=== PATIENT | female | born 1975 | race Caucasian/White ===

== ENCOUNTER 2018-08-03 19:56 | Emergency (ER) | payer OTHER ==
[2018-08-03] MEDS ORDERED: BABY ASPIRIN 81 MG CHEW PO ONE (20:16)
--- NOTE | 2018-08-03 20:16 | ERPHSYRPT ---
- History of Present Illness Time Seen by Provider: 08/03/18 20:10 Historian: patient, family, EMS Exam Limitations: no limitations Physician History: 43 y/o white female s/p left arthroscopic partial meniscus repair this am. 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 no soa. pt also blacked out both times. never had this before. pt has a family h/o of pulm emboli with brother dying approx 2 years ago from pulm embolus. 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 pt refused asa because of postop Timing/Duration: today Quality: sharpness, stabbing Chest Pain Radiation: arm (right), back Severity of Pain-Max: moderate Severity of Pain-Current: mild Modifying Factors: Improves With: nothing Associated Symptoms: other (blacked out) Prior Chest Pain/Cardiac Workup: no prior chest pain, no prior cardiac workup Nitro Today/Relief: no nitro taken today Aspirin Treatment Today: no aspirin today (pt refuses) Allergies/Adverse Reactions: latex Allergy (Verified 08/03/18 20:03) Home Medications: Fexofenadine HCl [Katie] 30 mg PO BID PRN 01/30/14 [History] Aspirin EC 81 mg [Ecotrin 81 mg] 1 tab PO DAILY PRN PRN 08/03/18 [History] Cephalexin Mh 500 mg [Keflex 500 mg] 1 tab PO QID 08/03/18 [History] Naproxen 250 mg PO BID PRN 08/03/18 [History] Hx Tetanus, Diphtheria Vaccination/Date Given: Yes Hx Influenza Vaccination/Date Given: No Hx Pneumococcal Vaccination/Date Given: No - Review of Systems Constitutional: No Symptoms Eyes: No Symptoms Ears, Nose, & Throat: No Symptoms Respiratory: No Symptoms Cardiac: Chest Pain, Other (blacked out) Abdominal/Gastrointestinal: No Symptoms Genitourinary Symptoms: No Symptoms Musculoskeletal: No Symptoms Skin: No Symptoms Neurological: No Symptoms Psychological: Anxiety Endocrine: No Symptoms Hematologic/Lymphatic: No Symptoms Immunological/Allergic: No Symptoms All Other Systems: Reviewed and Negative - Past Medical History Pertinent Past Medical History: Yes Neurological History: No Pertinent History ENT History: No Pertinent History Cardiac History: No Pertinent History Respiratory History: No Pertinent History Endocrine Medical History: No Pertinent History Musculoskeletal History: No Pertinent History GI Medical History: No Pertinent History History: Other Psycho-Social History: No Pertinent History Female Reproductive Disorders: No Pertinent History Other Medical History: CYST ON IDNEYS ET KIDNEY STONES - Past Surgical History Past Surgical History: Yes Neuro Surgical History: No Pertinent History Cardiac: No Pertinent History Respiratory: No Pertinent History Gastrointestinal: No Pertinent History, Other Genitourinary: No Pertinent History Musculoskeletal: No Pertinent History Female Surgical History: Tubal Ligation, Other (endometrial ablation 2 months ago) Other Surgical History: TONSILS;SINUS - Social History Smoking Status: Never smoker Exposure to second hand smoke: No Drug Use: none Patient Lives Alone: No - Nursing Vital Signs Nursing Vital Signs: Initial Vital Signs Temperature 98.1 F 08/03/18 20:08 Pulse Rate 82 08/03/18 20:08 Respiratory Rate 18 08/03/18 20:08 Blood Pressure 132/78 08/03/18 20:08 O2 Sat by Pulse Oximetry 98 08/03/18 20:08 Pain Scale Pain Intensity 3 - Physical Exam General Appearance: mild distress, alert, anxiety Eye Exam: PERRL/EOMI, eyes nml inspection Ears, Nose, Throat Exam: normal ENT inspection, moist mucous membranes Neck Exam: normal inspection, non-tender, supple, full range of motion Respiratory Exam: normal breath sounds, chest tenderness, lungs clear, airway intact, No respiratory distress Cardiovascular Exam: regular rate/rhythm, normal heart sounds, normal peripheral pulses Gastrointestinal/Abdomen Exam: soft, normal bowel sounds, No tenderness, No guarding, No rebound Pelvic Exam: not done Rectal Exam: not done Back Exam: normal inspection, normal range of motion, CVA tenderness Extremity Exam: limited range of motion (secondary to surgery), other (left lower ext surgical bandages in place. 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 Care 08/03/18 20:17 Active EKG-ER Only STAT Care 08/03/18 20:16 Active EKG-ER Only STAT Care 08/04/18 00:45 Active IV Insertion STAT Care 08/03/18 20:16 Active Pulse Oximetry (ED) STAT Care 08/03/18 20:16 Active CHEST 1 VIEW (PORTABLE) Stat Exams 08/03/18 20:16 Taken CHEST WITH CONTRAST [CT] Stat Exams 08/03/18 20:49 Taken CBC W DIFF Stat Lab 08/03/18 20:45 Completed CMP Stat Lab 08/03/18 20:45 Completed D-DIMER QUANTITATION Stat Lab 08/03/18 20:45 Completed NT PRO BNP Stat Lab 08/03/18 20:45 Completed TROPONIN Q3H Lab 08/03/18 20:45 Completed TROPONIN Q3H Lab 08/03/18 23:40 Completed TROPONIN Q3H Lab 08/04/18 02:36 Completed TROPONIN Q3H Lab 08/04/18 05:30 Ordered TROPONIN Q3H Lab 08/04/18 08:30 Ordered Medication Summary Generic Name Dose Route Start Last Admin Trade Name Freq PRN Reason Stop Dose Admin Sodium Chloride 1,000 mls @ 100 mls/hr 08/03/18 20:45 08/03/18 20:41 Sodium Chloride 0.9% 1000 Ml IV 09/02/18 20:44 100 mls/hr .Q10H BERTHA Administration Discontinued Medications Generic Name Dose Route Start Last Admin Trade Name Freq PRN Reason Stop Dose Admin Aspirin 324 mg 08/03/18 20:16 08/03/18 20:42 Baby Aspirin 81 Mg Chew PO 08/03/18 20:17 Not Given STAT ONE Sodium Chloride Confirm 08/03/18 20:36 Sodium Chloride 0.9% 1000 Ml Administered 08/03/18 20:37 Dose 1,000 mls @ ud .ROUTE .STK-MED ONE Lab/Rad Data: Laboratory Result Diagrams 08/03/18 20:45 08/03/18 20:45 Laboratory Results 08/04/18 08/03/18 08/03/18 Range/Units 02:36 23:40 20:45 WBC (4.0-10.5) K/mm3 RBC (4.1-5.4) M/mm3 Hgb (12.0-16.0) gm/dl Hct (35-47) % MCV (78-100) fl MCH (26-32) pg MCHC (32-36) g/dl RDW (11.5-14.0) % Plt Count (150-450) K/mm3 MPV (6-9.5) fl Gran % (36.0-66.0) % Eos # (Auto) (0-0.5) Absolute Lymphs (auto) (1.0-4.6) Absolute Monos (auto) (0.0-1.3) Lymphocytes % (24.0-44.0) % Monocytes % (0.0-12.0) % Eosinophils % (0.00-5.0) % Basophils % (0.0-0.4) % Absolute Granulocytes (1.4-6.9) Basophils # (0-0.4) D-Dimer (215-500) ng/mL Sodium (137-145) mmol/L Potassium (3.5-5.1) mmol/L Chloride (98-107) mmol/L Carbon Dioxide (22-30) mmol/L Anion Gap (5-15) MEQ/L BUN (7-17) mg/dL Creatinine (0.52-1.04) mg/dL Estimated GFR ML/MIN Glucose (74-106) mg/dL Calcium (8.4-10.2) mg/dL Total Bilirubin (0.2-1.3) mg/dL AST (14-36) U/L ALT (0-35) U/L Alkaline Phosphatase (38-126) U/L Troponin I 0.030 0.027 0.022 (0.000-0.034) ng/mL NT-Pro-B Natriuret Pep (0-450) pg/mL Serum Total Protein (6.3-8.2) g/dL Albumin (3.5-5.0) g/dL 08/03/18 08/03/18 08/03/18 Range/Units 20:45 20:45 20:45 WBC 7.7 (4.0-10.5) K/mm3 RBC 4.03 L (4.1-5.4) M/mm3 Hgb 12.7 (12.0-16.0) gm/dl Hct 38.0 (35-47) % MCV 94.3 (78-100) fl MCH 31.5 (26-32) pg MCHC 33.4 (32-36) g/dl RDW 13.5 (11.5-14.0) % Plt Count 199 (150-450) K/mm3 MPV 9.8 H (6-9.5) fl Gran % 85.0 H (36.0-66.0) % Eos # (Auto) 0.01 (0-0.5) Absolute Lymphs (auto) 0.75 L (1.0-4.6) Absolute Monos (auto) 0.40 (0.0-1.3) Lymphocytes % 9.7 L (24.0-44.0) % Monocytes % 5.2 (0.0-12.0) % Eosinophils % 0.1 (0.00-5.0) % Basophils % 0.0 (0.0-0.4) % Absolute Granulocytes 6.54 (1.4-6.9) Basophils # 0 (0-0.4) D-Dimer 280 (215-500) ng/mL Sodium 140 (137-145) mmol/L Potassium 4.4 (3.5-5.1) mmol/L Chloride 108 H (98-107) mmol/L Carbon Dioxide 25 (22-30) mmol/L Anion Gap 10.7 (5-15) MEQ/L BUN 8 (7-17) mg/dL Creatinine 0.60 (0.52-1.04) mg/dL Estimated GFR > 60.0 ML/MIN Glucose 160 H (74-106) mg/dL Calcium 9.3 (8.4-10.2) mg/dL Total Bilirubin 0.70 (0.2-1.3) mg/dL AST 31 (14-36) U/L ALT 16 (0-35) U/L Alkaline Phosphatase 40 (38-126) U/L Troponin I (0.000-0.034) ng/mL NT-Pro-B Natriuret Pep 760 H (0-450) pg/mL Serum Total Protein 6.8 (6.3-8.2) g/dL Albumin 4.0 (3.5-5.0) g/dL - Progress Progress: improved, re-examined Air Movement: good Progress Note: 08/03/18 22:24 cta chest-no pulm emboli 08/04/18 00:04 denies cp. no soa. 08/04/18 00:35 no sig cp or soa. 3 hour troponin nl but sl increased. will repeat ekg and troponin at 0230 08/04/18 00:57 2nd [id number] on 08/04/18 hr 61 nl axis nsr no acute st segment changes. normal ekg. no change. 08/04/18 04:06 pt still with cp mild. repeat troponin 0.03. still nl but rising. called [facility] for transfer admission. i reviewed pt hx, condition, lab, ekg and ct scan results. he accepts pt for transfer. 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 pt had 2 brief episodes of same chest pain while here then nearly completely resolves. Blood Culture(s) Obtained: No Antibiotics given: No Counseled pt/family regarding: lab results, diagnosis, need for follow-up, rad results - Departure Departure Disposition: Transfer Clinical Impression: Chest pain, PVC (premature ventricular contraction) Condition: Stable Critical Care Time: No Referrals: JACOBO MARTIN [Primary Care Provider] - Additional Instructions: follow up with primary doctor for further management. follow your orthopedic surgeons instructions. return to ED for recurrent symptoms
[2018-08-03] MEDS ORDERED: Sodium Chloride 0.9% 1000 ML 1,000 ML ONE (20:36)
[2018-08-03] MEDS ORDERED: Sodium Chloride 0.9% 1000 ML 1,000 ML IV SCH (20:45)
[2018-08-03 20:46] LABS: Basophil (Absolute #) 0 (0-0.4); Eosinophil % 0.1 % (0.00-5.0); Eosinophil (Absolute #) 0.01 (0-0.5); Granulocyte Absolute (ANC) 6.54 (1.4-6.9); Hemoglobin 12.7 gm/dl (12.0-16.0); Lymphocyte (Absolute #) 0.75 (1.0-4.6); Lymphocytes % 9.7 % (24.0-44.0); Mean Cell Volume 94.3 fl (78-100); Mean Corpuscular Hemoglobin 31.5 pg (26-32); Mean Corpuscular Hgb Concent. 33.4 g/dl (32-36); Mean Platelet Volume 9.8 fl (6-9.5); Monocytes % 5.2 % (0.0-12.0); Platelet Count 199 K/mm3 (150-450); Red Blood Count 4.03 M/mm3 (4.1-5.4); Red Cell Distribution Width 13.5 % (11.5-14.0); White Blood Count 7.7 K/mm3 (4.0-10.5)
[2018-08-03 21:13] LABS: ALKALINE PHOSPHATASE 40 U/L (38-126); ANION GAP 10.7 MEQ/L (5-15); BLOOD UREA NITROGEN 8 mg/dL (7-17); CHLORIDE 108 mmol/L (98-107); Calcium 9.3 mg/dL (8.4-10.2); Carbon Dioxide 25 mmol/L (22-30); Glucose 160 mg/dL (74-106); NT PRO BNP 760 pg/mL (0-450); Potassium 4.4 mmol/L (3.5-5.1); SGOT/AST 31 U/L (14-36); SGPT/ALT 16 U/L (0-35); SODIUM 140 mmol/L (137-145); Total Protein 6.8 g/dL (6.3-8.2)
[2018-08-04 04:22] VITALS: BP 105/64; PULSE 60; O2SAT 98
--- NOTE | 2018-08-04 08:53 | XRAY ---
Indication: Chest pain. Comparison: None Portable chest demonstrates normal heart and lungs. Bony thorax intact with mild levoscoliosis.
--- NOTE | 2018-08-04 08:53 | XRAY ---
Indication: Chest pain. S/P left knee surgery. Elevated d-dimer. Multiple contiguous axial images obtained through the chest using 80 cc Isovue 370 contrast and PE protocol. Comparison: None There is good opacification of the pulmonary arteries to include the lobar and segmental branches. No filling defect or pulmonary embolus. Heart is not enlarged. Aorta is normal in course and caliber. No pathologic mediastinal/hilar lymphadenopathy. Examination of the lung bregma demonstrates minimal dependent atelectasis. No suspicious pulmonary mass, infiltrate, or effusion. Bony thorax intact. Limited upper abdomen including adrenal glands are unremarkable. Impression: Negative pulmonary embolus. No acute cardiopulmonary abnormalities. CT DI 13.33
== END 2018-08-04 04:50 | disposition short-term general hospital (02) ==
LOC: ED 19:56
DX: R07.9 Chest pain, unspecified (principal); I49.3 Ventricular premature depolarization
CPT/HCPCS: 36415; 71045; 71260; 80053; 83880; 84484; 85025; 85379; 93005; 93041; 96360; 96361; 99285